=== PATIENT | male | born 1990 | race American Indian/Alaskan Native ===

== ENCOUNTER 2017-02-27 17:55 | Emergency (ER) | payer SELFPAY ==
[2017-02-27 18:01] VITALS: BP 130/76
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
== END 2017-02-27 20:39 | disposition home or self-care (01) ==
LOC: ED 17:55
DX: Z04.1 Encounter for examination and observation following transport accident (principal); F17.200 Nicotine dependence, unspecified, uncomplicated; F12.10 Cannabis abuse, uncomplicated
CPT/HCPCS: 99282

== ENCOUNTER 2020-03-06 00:11 | Emergency (ER) | payer SELFPAY ==
--- NOTE | 2020-03-06 01:12 | Emergency Department Report ---
ED Headache HPI - General Chief Complaint: Headache Stated Complaint: HEADACHE/LIGHT HEADED Time Seen by Provider: 03/06/20 01:07 - History of Present Illness Initial Comments: 29-year-old F [place] male with no significant past medical history presents emerged department complaining of a few day history of not improving headache to the left parietal region associated with blurred vision and concentration issues. Quality: mild, moderate Head Injury Location: parietal Recent Head Trauma: occasional headaches Associated Symptoms: denies: nausea/vomiting, nasal congestion, nasal drainage Allergies/Adverse Reactions: Allergies seafood Allergy (Uncoded 03/06/20 01:04) Shortness of Breath Home Medications: Ambulatory Orders Butalb/Acetaminophen/Caffeine [Fioricet 50-300-40 mg CAP] 1 cap PO Q6HR PRN #20 cap 03/06/20 ED Review of Systems ROS: Stated complaint: HEADACHE/LIGHT HEADED Other details as noted in HPI Comment: All other systems reviewed and negative ED Past Medical Hx - Past Medical History Previous Medical History?: No - Surgical History Past Surgical History?: No - Social History Smoking Status: Current Every Day Smoker Substance Use Type: None - Medications Home Medications: Home Medications Medication Instructions Recorded Confirmed Last Taken Type Butalb/Acetaminophen/Caffeine 1 cap PO Q6HR PRN #20 cap 03/06/20 Unknown Rx [Fioricet 50-300-40 mg CAP] ED Physical Exam - General Limitations: No Limitations General appearance: alert, in no apparent distress - Head Head exam: Present: atraumatic, normocephalic - Eye Eye exam: Present: normal appearance, PERRL, EOMI, other. Absent: nystagmus Pupils: Present: normal accommodation, other - ENT ENT exam: Present: normal exam, normal orophraynx, mucous membranes moist, TM's normal bilaterally - Neck Neck exam: Present: normal inspection, full ROM - Respiratory Respiratory exam: Present: normal lung sounds bilaterally. Absent: respiratory distress, wheezes, rales, chest wall tenderness, accessory muscle use - Cardiovascular Cardiovascular Exam: Present: regular rate, normal rhythm. Absent: bradycardia, tachycardia, systolic murmur, diastolic murmur, rubs, gallop - GI/Abdominal GI/Abdominal exam: Present: soft, normal bowel sounds - Rectal Rectal exam: Present: deferred - Extremities Exam Extremities exam: Present: normal inspection - Back Exam Back exam: Present: normal inspection - Neurological Exam Neurological exam: Present: alert, oriented X3 - Psychiatric Psychiatric exam: Present: normal affect, normal mood - Skin Skin exam: Present: warm, dry, intact, normal color. Absent: rash ED Course Vital Signs 03/06/20 01:01 Temperature 97.8 F Pulse Rate 81 Respiratory 16 Rate Blood Pressure 143/103 O2 Sat by Pulse 99 Oximetry ED Medical Decision Making - Radiology Data Radiology results: report reviewed [facility] [address] [place] [address] Cat Scan Report Signed Patient: SHANELL UP MR#: [id number] : 1990 Acct:[id number] Age/Sex: 29 / M ADM Date: 03/06/20 Loc: ED Attending Dr: Ordering Physician: AREN NEWMAN Date of Service: 03/06/20 Procedure(s): CT head/brain wo con Accession Number(s): [id number] cc: AREN NEWMAN CT HEAD WITHOUT CONTRAST INDICATION / CLINICAL INFORMATION: Patient complains of a headache. TECHNIQUE: All CT scans at this location are performed using CT dose reduction for ALARA by means of automated exposure control. COMPARISON: None available. FINDINGS: HEMORRHAGE: None. EXTRA-AXIAL SPACES: Normal in size and morphology for the patient's age. VENTRICULAR SYSTEM: Normal in size and morphology for the patient's age. CEREBRAL PARENCHYMA: No significant abnormality. No acute territorial infarct. MIDLINE SHIFT / HERNIATION: None. CEREBELLUM / BRAINSTEM: No significant abnormality. ORBITS: Normal as visualized. SOFT TISSUES: No significant abnormality. SKULL: No significant abnormality. PARANASAL SINUSES / MASTOID AIR CELLS: Normal as visualized. ADDITIONAL FINDINGS: None. IMPRESSION: 1. No acute intracranial abnormality. Signer Name: Jony Croft MD Signed: 03/06/2020 1:36 AM Workstation Name: [id number] Transcribed By: SS Dictated By: Jony Croft MD Electronically Authenticated By: Jony Croft MD Signed Date/Time: 03/06/20135 DD/ 4 TD/TT: - Medical Decision Making This patient presents with a headache most consistent with migraine. Differential diagnosis includes migraine versus tension type headache. No headache red flags. Neurologic exam without evidence of meningismus, focal neurologic findings.Based on the patient's history and physical there is very low clinical suspicion for significant intracranial pathology. The headache was NOT sudden onset, NOT maximal at onset, there are NO neurologic findings, the patient does NOT have a fever, the patient does NOT have any jaw claudication, the patient does NOT endorse a clotting disorder, patient DENIES any trauma or eye pain and the headache is NOT associated with dizziness or ataxia. Presentation not consistent with acute intracranial bleed to include SAH (lack of risk factors, headache history). Presentation not consistent with acute CITY [employer]ECTIVE infection to include meningitis or brain abscess, Temporal arteritis unlikely, as is acute angle closure glaucoma given history and physical findings. Presentation not consistent with other acute, emergent causes of headache at this time. Plan to treat symptomatically with pain medication. No indication for imaging/LP at this time. Plan: pain medication, CT brain normal CT scan, serial reassessment Critical care attestation.: If time is entered above; I have spent that time in minutes in the direct care of this critically ill patient, excluding procedure time. ED Disposition Clinical Impression: Cephalgia Disposition: DC-01 TO HOME OR SELFCARE Is pt being admited?: No Does the pt Need Aspirin: No Condition: Stable Prescriptions: Butalb/Acetaminophen/Caffeine [Fioricet 50-300-40 mg CAP] 1 cap PO Q6HR PRN #20 cap PRN Reason: Headache Referrals: PRIMARY CARE, [Primary Care Provider] - 3-5 Days [facility] [Provider Group] - 3-5 Days
--- NOTE | 2020-03-06 01:41 | Cat Scan Report ---
CT HEAD WITHOUT CONTRAST INDICATION / CLINICAL INFORMATION: Patient complains of a headache. TECHNIQUE: All CT scans at this location are performed using CT dose reduction for ALARA by means of automated exposure control. COMPARISON: None available. FINDINGS: HEMORRHAGE: None. EXTRA-AXIAL SPACES: Normal in size and morphology for the patient's age. VENTRICULAR SYSTEM: Normal in size and morphology for the patient's age. CEREBRAL PARENCHYMA: No significant abnormality. No acute territorial infarct. MIDLINE SHIFT / HERNIATION: None. CEREBELLUM / BRAINSTEM: No significant abnormality. ORBITS: Normal as visualized. SOFT TISSUES: No significant abnormality. SKULL: No significant abnormality. PARANASAL SINUSES / MASTOID AIR CELLS: Normal as visualized. ADDITIONAL FINDINGS: None. IMPRESSION: 1. No acute intracranial abnormality. Signer Name: Jony Croft MD Signed: 03/06/2020 1:36 AM Workstation Name: [id number]
[2020-03-06 03:03] VITALS: BP 110/78
== END 2020-03-06 02:58 | disposition home or self-care (01) ==
LOC: ED 00:11
DX: R51.9 Headache, unspecified (principal)
CPT/HCPCS: 70450; 99283